=== PATIENT | male | born 1940 | race Hispanic/Latino ===

== ENCOUNTER → 2020-04-15 | Day surgery (SDC) | payer BC, MEDICARE ==
[2020-04-12 09:09] LABS: BASOPHILS # (AUTO) 0.1 (0.0-0.1); BASOPHILS % 1.1 % (0.0-1.0); EOSINOPHILS # (AUTO) 0.1 (0.0-0.4); EOSINOPHILS % 1.2 % (0.0-6.0); HEMATOCRIT 46.3 % (38.2-49.6); HEMOGLOBIN 14.2 g/dL (14.0-18.0); LYMPHOCYTES # (AUTO) 1.4 (1.0-3.2); LYMPHOCYTES % 21.6 % (18.0-39.1); MEAN CORPUSCULAR HEMOGLOBIN 24.7 pg (28-32); MEAN CORPUSCULAR HGB CONC 30.7 g/dL (31-35); MEAN CORPUSCULAR VOLUME 80.7 fL (81-99); MONOCYTES # (AUTO) 0.5 (0.2-0.8); MONOCYTES % 6.9 % (4.4-11.3); NEUTROPHILS # (AUTO) 4.5 (2.1-6.9); NEUTROPHILS % 68.9 % (38.7-80.0); PLATELET COUNT 344 x10e3/uL (140-360); RED BLOOD COUNT 5.74 x10e6/uL (4.3-5.7)
[~2020-04-15] MED LIST: AMLODIPINE BESYL5 MG PO; ASPIRIN81 MG PO; FERROUS SULFAT325 M1 PO; LIDOCAINE HCL 2% LOCAL INJ 5 ML SDV VIAL INJ ONE; PRAVACHOL20 MG PO; PROPOFOL IV EMULSION 10 MG/ML 20 ML VIAL ONE; VASOTEC10 M1 PO
[2020-04-15 09:55] VITALS: BP 116/70
== END | disposition home or self-care (01) ==
LOC: OR 06:22
PROVIDERS: ATTEND Internal Medicine Gastroenterology
DX: D50.0 Iron deficiency anemia secondary to blood loss (chronic) (principal); K29.50 Unspecified chronic gastritis without bleeding; Q27.33 Arteriovenous malformation of digestive system vessel; K21.9 Gastro-esophageal reflux disease without esophagitis; K44.9 Diaphragmatic hernia without obstruction or gangrene; K64.8 Other hemorrhoids; Z71.3 Dietary counseling and surveillance; I10 Essential (primary) hypertension; E66.3 Overweight; F41.9 Anxiety disorder, unspecified; Z01.810 Encounter for preprocedural cardiovascular examination; Z01.812 Encounter for preprocedural laboratory examination; Z20.822 Contact with and (suspected) exposure to COVID-19; Z79.82 Long term (current) use of aspirin; Z68.25 Body mass index [BMI] 25.0-25.9, adult
CPT/HCPCS: 36415; 43239; 45378; 85025; 93005; J2001; J2704; U0002